=== PATIENT | male | born 1985 | race Two or more races ===

== ENCOUNTER 2024-10-08 13:49 | Emergency (ER) | payer OTHER, SELFPAY ==
[2024-10-08 13:51] VITALS: BMI 29.4
[2024-10-08 14:22] VITALS: BP 104/68; PULSE 94; RESP 18; TEMP 37.8; O2SAT 97; BMI 29.4
--- NOTE | 2024-10-08 14:30 | XR_ITS ---
Examination: PA lateral chest 2 views TECHNIQUE: Upright PA lateral chest 2 views Date and time: October 08, 2024 1540 hours INDICATIONS: Headaches chills bodyaches beginning 4 days ago. FINDINGS: Pneumonia in the right upper lobe Normal heart size The osseous structures are intact IMPRESSION: Right upper lobe pneumonia
--- NOTE | 2024-10-08 14:30 | EDRME_ITS ---
Rapid Medical Screening Exam [facility], [facility] Arrival date/time: 10/08/24 13:49 39-year-old male presents to the emergency department today for complaints of cough, congestion runny nose fever generalized bodyaches ongoing x 6 days Chief Complaint: Flu Like Symptoms Time Seen by Provider: 10/08/24 14:25 Vital signs: Vital Signs Temperature 100.1 F 10/08/24 14:22 Pulse Rate 94 10/08/24 14:22 Respiratory Rate 18 10/08/24 14:22 Blood Pressure 104/68 10/08/24 14:22 Pulse Oximetry (%) 97 10/08/24 14:22 Oxygen Delivery Method Room Air 10/08/24 14:22
[2024-10-08 14:59] LABS: Lactate (Lactic Acid) 0.7 mMol/L (0.4-2.0)
[2024-10-08 15:01] LABS: Basophils % (Auto) 1 % (0-2.5); Eosinophils # (Auto) 0.1 Thou/mm3 (0.0-0.5); Eosinophils % (Auto) 1 % (0-10); Hematocrit 39.7 % (41.0-53.0); Hemoglobin 13.8 g/dL (13.5-16.0); Immature Granulocytes % (Auto) 0 % (0-0); Immature Granulocytes Auto 0.02 Thou/mm3 (0.00-0.00); Lymphocytes # (Auto) 0.9 Thou/mm3 (1.0-4.8); Lymphocytes % (Auto) 11 % (10-50); Mean Corpuscular HGB Conc 34.8 g/dl (31.0-37.0); Mean Corpuscular Volume 92 fL (80-100); Monocytes # (Auto) 0.5 Thou/mm3 (0.0-0.8); Monocytes % (Auto) 7 % (0-12); Neutrophils % (Auto) 80 % (37-80); Nucleated Red Blood Cell % 0 /100 WBC (0); Platelet Count 203 Thou/mm3 (140-440); RDW Standard Deviation 42.5 fL (35.1-43.9); Red Blood Count 4.31 Miln/mm3 (4.50-5.90); White Blood Count 7.6 Thou/mm3 (3.8-10.6)
[2024-10-08 15:21] LABS: Collection Type, Urine Clean Catch; RBC,Urine 0 /hpf (0-3)
[2024-10-08 15:30] LABS: Alanine Aminotransferase 26 U/L (10-49); Albumin, Serum 4.4 gm/dL (3.5-5.0); Albumin/Globulin Ratio 1.3 (1.2-2.2); Alkaline Phosphatase 71 U/L (46-116); Anion Gap 8 (7-16); Aspartate Amino Transferase 20 U/L (0-34); BUN/Creatinine Ratio 12 Ratio (12-20); Bilirubin,Total 0.4 mg/dL (0.3-1.2); Blood Urea Nitrogen 13 mg/dL (9-23); Calcium 8.8 mg/dL (8.3-10.6); Calcium (Corrected) 8.8 mg/dL (8.5-10.1); Carbon Dioxide 27.8 mMol/L (20.0-31.0); Chloride 103 mMol/L (98-107); Creatinine (Component) 1.1 mg/dL (0.6-1.3); Estimated Creatinine Clearance 104.3 mL/min (>60); Globulin 3.3 gm/dL (2.3-3.5); Glucose 103 mg/dL (74-106); Osmolality,Calculated 277 (275-295); Potassium 3.9 mMol/L (3.4-5.1); Procalcitonin 0.29 ng/ml (0.0-0.49); Sodium 139 mMol/L (136-145); Total Protein 7.7 gm/dL (5.7-8.2); eGFR > 60 See Note
[2024-10-08 15:40] LABS: Strep A Rapid Negative (Negative)
[2024-10-08 15:47] LABS: Bilirubin,Urine Negative (Negative); Blood,Urine Trace (Negative); Clarity,Urine Clear (Clear/Hazy); Color,Urine Yellow (Lt Yel-Yel); Glucose, Urine Negative (Negative); Ketones,Urine 1+ (Negative); Leukocyte Esterase,Urine Negative (Negative); Nitrite,Urine Negative (Negative); PH,Urine 6.5 (5.0-7.0); Protein,Urine 2+ (Neg - Trace); Specific Gravity,Urine 1.042 (1.001-1.035); Urobilinogen,Urine Negative mg/dL (0.0-1.0)
--- NOTE | 2024-10-08 15:55 | PD.EDURI ---
Upper Respiratory Inf. RME/HPI General Chief Complaint: Flu Like Symptoms Stated Complaint: JOY & FEVER X1 WEEK Time Seen by Provider: 10/08/24 14:25 Arrival date/time: 39-year-old male presents to the emergency department today for complaints of cough, congestion runny nose fever generalized bodyaches ongoing x 6 days Limitations: no limitations RME / HPI RME / HPI Narrative: 10/08/24 13:49 39-year-old male presents to the emergency department today for complaints of cough, congestion runny nose fever generalized bodyaches ongoing x 6 days Related Data Previous Rx's ?Medication ?Instructions ?Recorded Cyclobenzaprine * (FLEXERIL *) 10 mg PO Q8HR PRN muscle spasm #15 11/20/14 tabs diazepam 10 mg tablet (Valium) 10 mg PO BID PRN muscle spasm #20 07/09/22 tabs naproxen 500 mg tablet (Naprosyn) 500 mg PO BID PRN pain #60 tabs 07/09/22 acetaminophen 500 mg capsule 1,000 mg (2 x 500 mg) PO Q8HR PRN 10/08/24 pain #30 caps amoxicillin 875 mg-potassium 1 tab PO BID 10 days #20 tabs 10/08/24 clavulanate 125 mg tablet azithromycin 500 mg tablet See Rx Instructions PO .COMPLEX #6 10/08/24 tabs ibuprofen 800 mg tablet 800 mg PO TID PRN pain #30 tabs 10/08/24 Allergies Allergy/AdvReac Type Severity Reaction Status Date / Time No Known Allergies Allergy Verified 10/08/24 13:51 Review of Systems Review of Systems Systems Reviewed: All systems reviewed, normal except as documented Constitutional Constitutional: Reports system reviewed and no additional complaints, except as documented, Reports body ache(s), Reports fever(s) and Reports headache(s) Eyes Eyes: Reports system reviewed and no additional complaints, except as documented and Denies blurry vision ENT Ears, Nose, Mouth, and Throat: Reports system reviewed and no additional complaints, except as documented, Reports headache(s), Reports nasal congestion and Reports nasal discharge Cardiovascular Cardiovascular: Reports system reviewed and no additional complaints, except as documented, Denies chest pain and Denies dyspnea Respiratory Respiratory: Reports system reviewed and no additional complaints, except as documented, Reports chest congestion, Reports cough and Denies dyspnea Gastrointestinal Gastrointestinal: Reports system reviewed and no additional complaints, except as documented and Denies abdominal pain Integumentary/Breasts Skin/Breast: Reports system reviewed and no additional complaints, except as documented and Denies rash Neurologic Neurologic: Reports system reviewed and no additional complaints, except as documented, Reports as per HPI and Reports headache(s) Past Medical History Social History SMOKING STATUS: Never smoker ED Exam General Limitations: Present no limitations General appearance: Present alert and in no apparent distress Head Head exam: Present atraumatic, normocephalic and normal inspection Eye Eye exam: Present normal appearance, PERRL and EOMI; Absent conjunctival injection ENT ENT exam: Present normal exam, normal oropharynx and mucous membranes moist Neck Neck exam: Present normal inspection, full ROM and trachea midline Chest Chest inspection: Present normal inspection and symmetric chest wall rise Respiratory Respiratory exam: Present normal lung sounds bilaterally Cardiovascular Cardiovascular exam: Present regular rate, normal rhythm and normal heart sounds; Absent bradycardia, tachycardia or irregular rhythm Abdominal Exam Abdominal exam: Present soft and normal bowel sounds; Absent distention, tenderness, guarding, rebound or rigidity Extremities Exam Extremities exam: Present normal inspection and full ROM Back Exam Back exam: Present normal inspection and full ROM Neurological Exam Neurological exam: Present alert, oriented X3 and CN II-XII intact Psychiatric Psychiatric exam: Present normal affect and normal mood Skin Skin exam: Present warm, dry, intact and normal color Course Quality Measures none Orders Category Date Time Status Bedside Influenza A&B Antigen Test NOW Care 10/08/24 14:30 Completed XR chest 2V Stat Exams 10/08/24 14:30 Completed Blood Culture (Lab) Stat Lab 10/08/24 14:45 Results CBC Stat Lab 10/08/24 14:45 Completed Cocci Serology IgM with reflex to IgG [Cocci Serology, Lab 10/08/24 16:19 Completed Unk History] Stat Cocid Sro, CF/ID (UCD) NO CHG* Routine Lab 10/09/24 14:08 Received Comprehensive Metabolic Panel Stat Lab 10/08/24 14:45 Completed Lactate (Lactic Acid) Stat Lab 10/08/24 14:45 Completed Procalcitonin Stat Lab 10/08/24 14:45 Completed Strep A Rapid Stat Lab 10/08/24 14:35 Completed Urinalysis Stat Lab 10/08/24 15:13 Completed Urine Culture Stat Lab 10/08/24 15:13 Completed Lidocaine 1% 20 ml [Xylocaine 1% 20 ML] Med 10/08/24 15:55 Discontinued 2.1 ml INFL X1 ONE cefTRIAXone [Rocephin] Med 10/08/24 15:55 Discontinued 1,000 mg IM X1 ONE cefTRIAXone [Rocephin] 1,000 mg Med 10/08/24 15:56 Discontinued Lidocaine 1% 20 ml [Xylocaine 1% 20 ML] 2.1 ml IM X1 Vital Signs Vital signs: Vital Signs Temperature 100.1 F 10/08/24 14:22 Pulse Rate 94 10/08/24 14:22 Respiratory Rate 18 10/08/24 14:22 Blood Pressure 104/68 10/08/24 14:22 Pulse Oximetry (%) 97 10/08/24 14:22 Oxygen Delivery Method Room Air 10/08/24 14:22 O2 saturation 97% room air within normal limits Upper Respiratory Infection MDM Narrative MDM Narrative:: 39-year-old male presents to the emergency department today for complaints of cough, congestion runny nose fever generalized bodyaches ongoing x 6 days Lab work and imaging obtained Patient does have right upper lobe pneumonia with no white count concern for possible coccidiomycosis Cocci ordered and will not be resulted today we will contact patient with results Lab work and imaging obtained patient does have pneumonia patient given antibiotics and discharged home with antibiotics Patient discharged home in no distress to follow-up with primary care doctor in the next 24 to 48 hours and for any worsening symptoms to return to the ER immediately 10/12???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 I stressed the importance already medication as soon as possible patient states understanding and states will make an appointment Patient data External records reviewed:: [facility] previous records Clinical information provided by:: patient Social determinants that could affect healthcare access:: none Patient has the following chronic illnesses:: See history How is presenting disease/condition affected by chronic disease/condition?: uneffected by Evaluation data The following diagnostics were reviewed and interpreted by me:: lab results and radiology exam(s) Lab and/or radiology exams considered but not ordered:: Labs radiology obtain Interpretation Summary: Reviewed by me Medications / Prescriptions Medications or Prescriptions considered but not ordered:: Given Medication administrations:: Medication Administration History Discontinued Medications Ceftriaxone Sodium (Ceftriaxone Sod Inj 1,000 Mg Vial) 1,000 mg IM X1 ONE Stop: 10/08/24 15:56 Last Admin: 10/08/24 16:18 Dose: Not Given Documented By: Non-Admin Reason: Cancelled by Provider Ceftriaxone Sodium 1,000 mg/ (Lidocaine HCl 2.1 ml) 0 mg IM X1 ONE Stop: 10/08/24 15:57 Last Admin: 10/08/24 16:15 Dose: 1,000 mg Documented By: Lidocaine HCl (Lidocaine Hcl 1% 20 Ml Vial) 2.1 ml INFL X1 ONE Stop: 10/08/24 15:56 Last Admin: 10/08/24 16:18 Dose: Not Given Documented By: Non-Admin Reason: Cancelled by Provider Given Consultations Consultation(s) initiated? (list below): No Diagnosis Upper Respiratory Differential Diagnosis: upper respiratory infection, sinusitis and bronchitis Most likely diagnosis given after review of the tests above:: Pneumonia, valley fever Admission Indicated Admission indicated?: not indicated Admission Request Was there a request for admission?: No Disposition Plan Disposition Plan: Discharge Discharge Attestation Discharge Attestation: The patient and all family members were given an opportunity to ask questions and understood the discharge instructions. Discharge instructions specifically effects, indications for sooner follow up or return to the emergency department, and the expected course of current diagnosis. Patient condition: Stable Discharge Plan Plan Patient Disposition: HOME (Self Care) Discharge Disposition comment: Stable Prescriptions/Referrals Prescriptions/Med Rec: New ibuprofen 800 mg tablet 800 mg PO TID PRN (Reason: pain) Qty: 30 0RF acetaminophen 500 mg capsule 1,000 mg PO Q8HR PRN (Reason: pain) Qty: 30 0RF amoxicillin-pot clavulanate 875-125 mg tablet 1 tab PO BID 10 Days Qty: 20 0RF azithromycin 500 mg tablet See Rx Instructions .ROUTE .COMPLEX Qty: 6 0RF Rx Instructions: take 500 mg today (day 1), then 250 mg for 4 days (days 2-5) No Action Cyclobenzaprine * (FLEXERIL *) 10 MG tablet 10 mg PO Q8HR PRN (Reason: muscle spasm) Qty: 15 0RF diazepam [Valium] 10 mg tablet 10 mg PO BID PRN (Reason: muscle spasm) Qty: 20 0RF naproxen [Naprosyn] 500 mg tablet 500 mg PO BID PRN (Reason: pain) Qty: 60 0RF Referrals: No Primary/Family,Physician [Primary Care Provider] - In 1 week Problem List Clinical Impression: Pneumonia Patient/Caregiver Discharge Instructions Education Materials: ED Pneumonia (Adult) Additional Instructions: Please follow up with your primary care doctor in the next 24-48hrs for any worsening symptoms return here immediately You are tested for valley fever which is pending please follow-up on your results Print Language: Persian Stand Alone Forms: [place] Award Info., Patient Portal Info Letter PA/MAINTENANCE CONSTRUCTION HELPER Supervising Physician PA/MAINTENANCE CONSTRUCTION HELPER Supervising Physician: Dr. Arce
[2024-10-08] MEDS: cefTRIAXone 1,000 MG, LIDOCAINE 1% 20 ML 2.1 ML IM (16:15)
[2024-10-08 17:06] LABS: Bacteria,Urine Rare; Squamous Epithelial Cell,Urine 1 /hpf (0-5); WBC,Urine 2 /hpf (0-5)
[2024-10-09 14:08] LABS: Cocci Serology, IgM Positive (Negative)
[2024-10-09 14:09] LABS: Cocid Sro, CF/ID (UCD) NO CHG* See Sep Rpt
== END 2024-10-08 16:24 | disposition home or self-care (01) ==
PROVIDERS: Nurse Practitioner Primary Care; Emergency Provider Emergency Medicine
DX: J18.9 Pneumonia, unspecified organism (principal)
CPT/HCPCS: 36415; 71046; 80053; 81001; 83605; 84145; 85025; 86635; 87040; 87077; 87086; 87186; 87400; 87651; 96372; 99283; J0696; J3490